=== PATIENT | male | born 1955 | race Caucasian/White ===

== ENCOUNTER → 2024-07-06 | Outpatient (CLI) | payer MEDICARE, BC, SELFPAY ==
--- NOTE | 2024-07-06 10:54 | XR_ITS ---
Examination: Ribs, bilateral, with PA chest, 7 views Technique: Chest PA, RIBS AP, RPO, LPO, right and left ribs, AP coned lower ribs 7 views Exam date and time: July 06, 2024 1153 hours INDICATIONS: Patient fell 3 months ago with injury to the right and left chest, bilateral rib pain Findings: Normal heart size No pneumothorax Prominent osteopenia No acute rib fractures IMPRESSION: No pneumothorax pulmonary contusion or hemothorax No acute rib fractures
== END | disposition home or self-care (01) ==
PROVIDERS: PCP Family Medicine; Referring Provider Family Medicine; Visit Provider Family Medicine
DX: R07.82 Intercostal pain (principal); S29.9XXS Unspecified injury of thorax, sequela; W19.XXXS Unspecified fall, sequela
CPT/HCPCS: 71111

== ENCOUNTER → 2024-09-02 | Outpatient (CLI) | payer MEDICARE, BC, SELFPAY ==
--- NOTE | 2024-09-02 12:39 | XR_ITS ---
Examination: Lumbar spine, 5 views Technique: Lumbar spine AP, lateral, coned lateral lower lumbar spine, bilateral obliques 5 views Exam date and time: September 02, 2024 1246 hours INDICATIONS: Lower back pain radiating to the right hip beginning 3 days ago. FINDINGS: Thoracolumbar levoscoliosis 20 degrees Moderate narrowing hip joints Prominent osteopenia Advanced diffuse facet arthropathy Moderate to advanced diffuse lumbar degenerative disc disease, most severe at the lower 3 lumbar levels No lumbar fracture Moderate lumbar spondylosis Calcified abdominal aorta with at least 3 cm AP dimension abdominal aorta IMPRESSION: Moderate to advanced diffuse lumbar degenerative disc disease with significant spinal stenosis
== END | disposition home or self-care (01) ==
PROVIDERS: PCP Nurse Practitioner Family; Referring Provider Nurse Practitioner Family; Visit Provider Nurse Practitioner Family
DX: M51.369 Other intervertebral disc degeneration, lumbar region without mention of lumbar back pain or lower extremity pain (principal); M48.061 Spinal stenosis, lumbar region without neurogenic claudication
CPT/HCPCS: 72110

== ENCOUNTER → 2024-10-06 | Outpatient (CLI) | payer MEDICARE, BC, SELFPAY ==
--- NOTE | 2024-10-06 16:53 | XR_ITS ---
Examination: Thoracic spine 3 views Technique: AP lateral coned lateral upper dorsal spine 3 views Exam date and time: October 06, 2024 1734 hrs. Indications: Upper back pain beginning 7 days ago. Findings: Significant osteopenia Thoracic dextroscoliosis 8 degrees No acute thoracic fracture Mild diffuse thoracic disc narrowing Incidental advanced disc narrowing C5-C6 Impression: Mild diffuse thoracic degenerative disc disease
--- NOTE | 2024-10-06 16:53 | XR_ITS ---
Examination: Lumbar spine, 5 views Technique: Lumbar spine AP, lateral, coned lateral lower lumbar spine, bilateral obliques 5 views Exam date and time: October 06, 2024 1734 hrs. Comparison September 02, 2024 Indications: Onset low back pain beginning 7 days ago Findings: Lumbar levoscoliosis 20 degrees Prominent osteopenia Diffuse advanced facet arthropathy Calcified abdominal aorta AP dimension at least 3 cm Moderate to advanced diffuse lumbar degenerative disc disease No lumbar fracture Impression: Moderate to advanced diffuse lumbar degenerative disc disease with significant spinal stenosis
== END | disposition home or self-care (01) ==
LOC: CDIM 16:49
PROVIDERS: Referring Provider Physician Assistant; Visit Provider Physician Assistant
DX: M51.34 Other intervertebral disc degeneration, thoracic region (principal); M51.369 Other intervertebral disc degeneration, lumbar region without mention of lumbar back pain or lower extremity pain; M48.061 Spinal stenosis, lumbar region without neurogenic claudication
CPT/HCPCS: 72072; 72110

== ENCOUNTER → 2024-12-21 | Outpatient (CLI) | payer MEDICARE, BC, SELFPAY ==
[2024-12-21 11:25] LABS: Basophils # (Auto) 0.1 Thou/mm3 (0.0-0.2); Basophils % (Auto) 1 % (0-2.5); Eosinophils # (Auto) 0.4 Thou/mm3 (0.0-0.5); Eosinophils % (Auto) 4 % (0-10); Hematocrit 51.9 % (41.0-53.0); Hemoglobin 18.4 g/dL (13.5-16.0); Immature Granulocytes % (Auto) 1 % (0-0); Immature Granulocytes Auto 0.08 Thou/mm3 (0.00-0.00); Lymphocytes # (Auto) 3.1 Thou/mm3 (1.0-4.8); Lymphocytes % (Auto) 29 % (10-50); Mean Corpuscular HGB Conc 35.5 g/dl (31.0-37.0); Mean Corpuscular Hemoglobin 29.8 pg (25.0-35.0); Mean Corpuscular Volume 84 fL (80-100); Monocytes # (Auto) 0.9 Thou/mm3 (0.0-0.8); Monocytes % (Auto) 8 % (0-12); Neutrophils % (Auto) 57 % (37-80); Nucleated Red Blood Cell % 0 /100 WBC (0); Platelet Count 334 Thou/mm3 (140-440); RDW Standard Deviation 41.2 fL (35.1-43.9); Red Blood Count 6.17 Miln/mm3 (4.50-5.90); White Blood Count 10.7 Thou/mm3 (3.8-10.6)
[2024-12-21 11:37] LABS: Glucose Estimated Average 100 mg/dL (80-131); Hemoglobin A1C 5.1 % Hgb (4.8-6.0)
[2024-12-21 11:53] LABS: Prostate Specific Antigen 1.96 ng/mL (0-4.00)
[2024-12-21 11:56] LABS: Alanine Aminotransferase 65 U/L (10-49); Albumin, Serum 4.7 gm/dL (3.4-4.8); Albumin/Globulin Ratio 1.5 (1.2-2.2); Alkaline Phosphatase 122 U/L (46-116); Anion Gap 8 (7-16); Aspartate Amino Transferase 43 U/L (0-34); BUN/Creatinine Ratio 13 Ratio (12-20); Bilirubin,Total 1.1 mg/dL (0.3-1.2); Blood Urea Nitrogen 18 mg/dL (9-23); Calcium 9.6 mg/dL (8.3-10.6); Calcium (Corrected) 9.6 mg/dL (8.5-10.1); Carbon Dioxide 27.3 mMol/L (20.0-31.0); Cardiac Risk Estimate 4.9 RATIO (4.0-6.7); Chloride 105 mMol/L (98-107); Cholesterol 170 mg/dL (132-200); Creatinine (Component) 1.4 mg/dL (0.6-1.3); Globulin 3.1 gm/dL (2.3-3.5); Glucose 125 mg/dL (74-106); HDL Cholesterol 35 mg/dL (40-60); LDL Cholesterol,Calculated 94 mg/dL (0-130); Osmolality,Calculated 282 (275-295); Potassium 4.6 mMol/L (3.4-5.1); Sodium 140 mMol/L (136-145); Thyroid Stimulating Hormone 1.29 uIU/mL (0.55-4.78); Total Protein 7.8 gm/dL (5.7-8.2); Triglycerides 203 mg/dL (30-150); eGFR 54 See Note
[2024-12-21 12:45] LABS: Collection Type, Urine Clean Catch; Squamous Epithelial Cell,Urine 0 /hpf (0-5)
[2024-12-21 13:00] LABS: Bilirubin,Urine Negative (Negative); Blood,Urine Negative (Negative); Clarity,Urine Clear (Clear/Hazy); Color,Urine Yellow (Lt Yel-Yel); Culture Indicated,Urine Not Indicated; Glucose, Urine Negative (Negative); Hyaline Casts,Urine < 1 /hpf (0-1); Ketones,Urine Negative (Negative); Leukocyte Esterase,Urine Negative (Negative); Nitrite,Urine Negative (Negative); Protein,Urine Negative (Neg - Trace); RBC,Urine 2 /hpf (0-3); Specific Gravity,Urine 1.016 (1.001-1.035); Urobilinogen,Urine Negative mg/dL (0.0-1.0); WBC,Urine 1 /hpf (0-5)
== END | disposition home or self-care (01) ==
LOC: COPL 10:12
PROVIDERS: PCP Family Medicine; Referring Provider Physician Assistant; Visit Provider Physician Assistant
DX: E78.2 Mixed hyperlipidemia (principal); I10 Essential (primary) hypertension
CPT/HCPCS: 36415; 80053; 80061; 81001; 83036; 84153; 84443; 85025

== ENCOUNTER → 2025-01-06 | Outpatient (BNVA) | payer MEDICARE, BC, SELFPAY | END | disposition home or self-care (01) | PROVIDERS: PCP Family Medicine; Referring Provider Family Medicine; Visit Provider Urology | DX: N40.0 Benign prostatic hyperplasia without lower urinary tract symptoms (principal); C67.9 Malignant neoplasm of bladder, unspecified; I12.9 Hypertensive chronic kidney disease with stage 1 through stage 4 chronic kidney disease, or unspecified chronic kidney disease; N18.2 Chronic kidney disease, stage 2 (mild); E66.9 Obesity, unspecified; Z68.34 Body mass index [BMI] 34.0-34.9, adult; Z87.891 Personal history of nicotine dependence; E78.00 Pure hypercholesterolemia, unspecified; J44.9 Chronic obstructive pulmonary disease, unspecified | CPT/HCPCS: 81003; 99212; G0463 ==

== ENCOUNTER → 2025-02-08 | Outpatient (CLI) | payer MEDICARE, BC, SELFPAY ==
--- NOTE | 2025-02-08 10:17 | XR_ITS ---
Examination: Sinus series 3 views TECHNIQUE: Tk Haas lateral sinus series 3 views Date and time: February 08, 2025 1037 hours INDICATIONS: Sinus pressure and pain beginning 5 weeks ago. FINDINGS: Mild opacity in the frontal ethmoid air cells Mucosal thickening up to 12 mm in the maxillary antra No fluid levels No retention cysts IMPRESSION: Chronic sinusitis
== END | disposition home or self-care (01) ==
PROVIDERS: PCP Family Medicine; Referring Provider Family Medicine; Visit Provider Family Medicine
DX: J32.9 Chronic sinusitis, unspecified (principal)
CPT/HCPCS: 70220

== ENCOUNTER 2025-05-07 01:00 | Emergency (ER) | payer MEDICARE, BC, SELFPAY ==
[2025-05-07 01:01] VITALS: BMI 33.5
[2025-05-07 01:24] VITALS: BP 123/80; PULSE 86; RESP 20; TEMP 37; O2SAT 93
--- NOTE | 2025-05-07 01:37 | PD.EDURI ---
Upper Respiratory Inf. RME/HPI General Chief Complaint: General Adult/Misc Complain Stated Complaint: COVID + TEST AT HOME Time Seen by Provider: 05/07/25 01:48 Arrival date/time: 05/07/25 01:00 RME / HPI RME / HPI Narrative: See [facility] for Dr. Collier's HPI Documentation. Related Data Home Medications ?Medication ?Instructions ?Recorded ?Confirmed latanoprost 0.005 % eye drops 1 drp Both eyes QDAY ##5 05/19/17 01/06/25 atorvastatin 20 mg tablet 20 mg PO QDAY 11/14/19 01/06/25 amlodipine 10 mg tablet 10 mg PO QDAY 12/22/22 01/06/25 brimonidine 0.2 % eye drops 1 drp ophthalmic (eye) TID 12/22/22 01/06/25 buspirone 15 mg tablet 15 mg PO QDAY 12/22/22 01/06/25 diclofenac sodium 75 mg 75 mg PO BID PRN Pain 12/22/22 01/06/25 tablet,delayed release mirtazapine 15 mg tablet 15 mg PO HS 12/22/22 01/06/25 omeprazole 40 mg capsule,delayed 40 mg PO QDAY 12/22/22 01/06/25 release spironolactone 25 0.5 tab PO MWF 12/22/22 01/06/25 mg-hydrochlorothiazide 25 mg tablet timolol maleate 0.5 % eye drops 1 drp ophthalmic (eye) BID 12/22/22 01/06/25 Previous Rx's ?Medication ?Instructions ?Recorded albuterol sulfate 90 mcg/actuation 2 puff inhalation Q6H PRN 05/07/25 aerosol inhaler shortness of breath or wheezing #8.5 grams azithromycin 500 mg tablet 500 mg PO QDAY 3 days #3 tabs 05/07/25 (Zithromax [place]) prednisone 50 mg tablet 50 mg PO BID 3 days #6 tabs 05/07/25 Allergies Allergy/AdvReac Type Severity Reaction Status Date / Time levofloxacin (From Levaquin) Allergy Severe Confusion Verified 05/07/25 01:03 Penicillins Allergy Severe RASH ITCHY Verified 05/07/25 01:03 Review of Systems Review of Systems Systems Reviewed: All systems reviewed, normal except as documented Past Medical History Past Medical History CARDIAC: Positive Cardiac Disorders, Hypercholesterolemia and Hypertension RESPIRATORY: Positive Chronic Obstructive Pulmonary Disease (COPD), Asthma and Pneumonia GASTROINTESTINAL: Positive Gastrointestinal Disorders (RECTAL BLEED), Gastroesophageal Reflux Disease and Obesity GENITOURINARY: Positive Benign Prostatic Hyperplasia MUSCULOSKELETAL: Positive Musculoskeletal Disorders, Arthritis and Degenerative Disk Disease ENT: Positive Glaucoma PSYCHO/SOCIAL: Positive Anxiety OTHER HISTORY: Positive Hospitalization, Shingles, Chicken Pox and Cancer (BLADDER) Family History FAMILY HISTORY: Positive Family Cardiac Disorders Social History SMOKING STATUS: Former smoker ED Exam Narrative Physical exam: See MDM for Dr. Collier's Physical Exam Documentation. Course Course Course Narrative: CXR was ordered for determining the etiology of shortness of breath. Quality Measures none Orders Category Date Time Status Bedside COVID-19 Antigen Test NOW Care 05/07/25 01:49 Completed Bedside Influenza A&B Antigen Test NOW Care 05/07/25 01:49 Completed XR chest 1V portable Stat Exams 05/07/25 01:50 Completed BMP [Basic Metabolic Panel] Stat Lab 05/07/25 02:16 Completed BNP [B-Type Natriuretic Peptide] Stat Lab 05/07/25 02:16 Completed CBC Stat Lab 05/07/25 02:16 Completed Magnesium Stat Lab 05/07/25 02:16 Completed Strep A Rapid Stat Lab 05/07/25 03:00 Completed Troponin I Stat Lab 05/07/25 02:16 Completed Albuterol/Ipratr Rt Ele [Duoneb Rt Ele] Med 05/07/25 01:49 Discontinued 3 ml INH X1 ONE predniSONE Med 05/07/25 01:49 Discontinued 60 mg PO X1 ONE Vital Signs Vital signs: Vital Signs Temperature 98.6 F 05/07/25 01:24 Pulse Rate 86 05/07/25 01:24 Respiratory Rate 20 05/07/25 01:24 Blood Pressure 123/80 05/07/25 01:24 Pulse Oximetry (%) 93 L 05/07/25 01:24 Oxygen Delivery Method Room Air 05/07/25 01:24 Upper Respiratory Infection MDM Narrative [facility] Narrative:: This section includes all my notes and documentations, including HPI, PE, and ED course. Messi Collier MD HPI: 69 y/o male with Hx of COPD and Asthma presents with cough, shortness of breath, and sore throat x 40 hours. Patient tested positive for COVID-19 at home yesterday. No other complaints. ROS: All negative except as documented in HPI. Physical Exam: General: Alert and oriented. No acute distress when remaining still. Eyes: Conjunctivae and lids clear. ENT: No nasal congestion. TM normal bilaterally. Pharynx normal. Neck: Supple. Heart: RRR. Lungs: No respiratory distress. Decreased air movement with rhonchi. Abdomen: Soft and nontender. Skin: Warm and dry. Neuro: Alert and oriented X 3. I reviewed all diagnostic test results: My interpretation of the chest x-ray is increased bronchial markings. Blood tests unremarkable. Covid: Positive. Influenza: Negative. Rapid Strep: Negative. At this point, diagnoses include: COVID Treatment here included: Duoneb Prednisone 60 mg Significant improvement noted. Recommended supportive care. Based on my best medical judgment, made decision no further evaluation or treatment indicated at this time. Patient understands and agrees to the discharge instructions customized and printed, see below. Discharge instructions from Dr. Collier: --After evaluation, your symptoms are due to COVID. Strep was negative. --No physical exertion for 3 days to help rest the lungs. ?No smoking or exposure to smoking or pets or dust or humidity. --Zithromax to kill the germs causing the bronchitis. --Prednisone to help decrease the swelling in the airways. --Albuterol 2 puffs every 4-6 hours for 3 days to help keep the airways open. Then as needed for cough or shortness of breath. --See a private doctor on 05/09/25 for recheck. Ask for help until you are completely better. --Seek immediate medical care with worsening or with any concerns. Messi Collier MD Patient data External records reviewed:: [facility] previous records (Reviewed prior ED records from 05/07/24. Patient was seen for Bright red blood per rectum.) Clinical information provided by:: patient Social determinants that could affect healthcare access:: none Patient has the following chronic illnesses:: Hypercholesterolemia, Hypertension, Chronic Obstructive Pulmonary Disease (COPD), Asthma, Gastroesophageal Reflux Disease, Obesity, Benign Prostatic Hyperplasia, Arthritis, Degenerative Disk Disease, Glaucoma, Anxiety How is presenting disease/condition affected by chronic disease/condition?: exacerbated by Evaluation data The following diagnostics were reviewed and interpreted by me:: lab results and radiology exam(s) Lab and/or radiology exams considered but not ordered:: None Interpretation Summary: I reviewed all diagnostic test results: My interpretation of the chest x-ray is increased increased bronchial markings. Blood tests and urine tests Covid: Positive. Influenza: Negative. Rapid Strep: Negative. Medications / Prescriptions Medications or Prescriptions considered but not ordered:: None Medication administrations:: Medication Administration History Discontinued Medications Albuterol/Ipratropium (Albuterol/Ipratropium (Duoneb) Rt Ele 3 Ml Nebu) 3 ml INH X1 ONE Stop: 05/07/25 01:50 Last Admin: 05/07/25 02:10 Dose: 3 ml Documented By: CAITLYN Prednisone (Prednisone 20 Mg Tablet) 60 mg PO X1 ONE Stop: 05/07/25 01:50 Last Admin: 05/07/25 02:00 Dose: 60 mg Documented By: VIJAYA Duemiliano Prednisone 60 mg Consultations Consultation(s) initiated? (list below): No Diagnosis Upper Respiratory Differential Diagnosis: upper respiratory infection, viral infection, bronchitis, influenza and other (COVID-19) Most likely diagnosis given after review of the tests above:: COVID Admission Indicated Admission indicated?: not indicated Explain why admission is indicated or not indicated:: With significant improvement and no condition needing emergent intervention, there was no indication for admission. Admission Request Was there a request for admission?: No Disposition Plan Disposition Plan: Discharge Discharge Attestation Discharge Attestation: The patient and all family members were given an opportunity to ask questions and understood the discharge instructions. Discharge instructions specifically effects, indications for sooner follow up or return to the emergency department, and the expected course of current diagnosis. Patient condition: Stable Discharge Plan Plan Patient Disposition: HOME (Self Care) Prescriptions/Referrals Prescriptions/Med Rec: New prednisone 50 mg tablet 50 mg PO BID 3 Days Qty: 6 0RF albuterol sulfate 90 mcg/actuation HFA aerosol inhaler 2 puff inhalation Q6H PRN (Reason: shortness of breath or wheezing) Qty: 8.5 0RF azithromycin [Zithromax [place]] 500 mg tablet 500 mg PO QDAY 3 Days Qty: 3 0RF No Action latanoprost 2.5 ML drops 1 drp Both eyes QDAY Qty: 5 atorvastatin 20 mg Tablet 20 mg PO QDAY spironolacton-hydrochlorothiaz 25-25 mg tablet 0.5 tab PO MWF Patient Comments: TAKE 1/2 (ONE-HALF) TABLET BY MOUTH ONCE DAILY ON THURSDAY, THURSDAY AND THURSDAY omeprazole 40 mg capsule,delayed release(DR/EC) 40 mg PO QDAY Patient Comments: TAKE 1 CAPSULE BY MOUTH 30 MINUTES BEFORE BREAKFAST ONCE DAILY FOR 90 DAYS amlodipine 10 mg tablet 10 mg PO QDAY Patient Comments: TAKE 1 TABLET BY MOUTH ONCE DAILY FOR 90 DAYS brimonidine 0.2 % drops 1 drp OPHTHALMIC (EYE) TID Patient Comments: INSTILL 1 DROP INTO EACH EYE THREE TIMES DAILY diclofenac sodium 75 mg tablet,delayed release (DR/EC) 75 mg PO BID PRN (Reason: Pain) Patient Comments: TAKE 1 TABLET BY MOUTH TWICE DAILY NEEDED mirtazapine 15 mg tablet 15 mg PO HS Patient Comments: TAKE 1 TABLET BY MOUTH AT BEDTIME FOR 90 DAYS timolol maleate 0.5 % drops 1 drp OPHTHALMIC (EYE) BID Patient Comments: INSTILL 1 DROP TWICE DAILY INTO EACH EYE buspirone 15 mg tablet 15 mg PO QDAY Patient Comments: TAKE 1 TABLET BY MOUTH ONCE DAILY FOR 90 DAYS Referrals: Tiffanie Jeffers MD [Primary Care Provider, Family Practice] - In 1 week Problem List Clinical Impression: COVID Patient/Caregiver Discharge Instructions Discharge Activity: activity as tolerated Education Materials: COVID-19 Home Care Additional Instructions: Discharge instructions from Dr. Collier: --After evaluation, your symptoms are due to COVID. Strep was negative. --No physical exertion for 3 days to help rest the lungs. ?No smoking or exposure to smoking or pets or dust or humidity. --Zithromax to kill the germs causing the bronchitis. --Prednisone to help decrease the swelling in the airways. --Albuterol 2 puffs every 4-6 hours for 3 days to help keep the airways open. Then as needed for cough or shortness of breath. --See a private doctor on 05/09/25 for recheck. Ask for help until you are completely better. --Seek immediate medical care with worsening or with any concerns. Print Language: Romanian Stand Alone Forms: [employer] Award Info., Patient Portal Info Letter
--- NOTE | 2025-05-07 01:50 | XR_ITS ---
Examination: AP chest single view Technique one AP upright portable chest single view Date and time: May 07, 2025, 1509 hrs. Indications: Shortness of breath today. Findings: COPD with moderate hyperexpansion Basilar bronchitis pattern. No lobar pneumonia Prominent osteopenia Impression: COPD Basilar bronchitis pattern
[2025-05-07] MEDS: ALBUTEROL/IPRATROPIUM (Duoneb) RT SOL 3 ML NEBU INH (02:10)
[2025-05-07 02:15] VITALS: PULSE 85; RESP 16; O2SAT 95
[2025-05-07 02:33] LABS: Basophils # (Auto) 0.0 Thou/mm3 (0.0-0.2); Basophils % (Auto) 0 % (0-2.5); Eosinophils # (Auto) 0.1 Thou/mm3 (0.0-0.5); Eosinophils % (Auto) 1 % (0-10); Hematocrit 51.8 % (41.0-53.0); Hemoglobin 18.3 g/dL (13.5-16.0); Immature Granulocytes Auto 0.04 Thou/mm3 (0.00-0.00); Lymphocytes # (Auto) 2.0 Thou/mm3 (1.0-4.8); Lymphocytes % (Auto) 18 % (10-50); Mean Corpuscular HGB Conc 35.3 g/dl (31.0-37.0); Mean Corpuscular Hemoglobin 30.1 pg (25.0-35.0); Mean Corpuscular Volume 85 fL (80-100); Monocytes # (Auto) 1.2 Thou/mm3 (0.0-0.8); Monocytes % (Auto) 10 % (0-12); Neutrophils # (Auto) 8.1 Thou/mm3 (1.8-7.7); Neutrophils % (Auto) 71 % (37-80); Nucleated Red Blood Cell # 0.00 Thou/mm3 (0.00-0.00); Nucleated Red Blood Cell % 0 /100 WBC (0); Platelet Count 190 Thou/mm3 (140-440); RDW Standard Deviation 43.3 fL (35.1-43.9); Red Blood Count 6.07 Miln/mm3 (4.50-5.90); White Blood Count 11.4 Thou/mm3 (3.8-10.6)
[2025-05-07 02:52] LABS: Anion Gap 10 (7-16); BUN/Creatinine Ratio 12 Ratio (12-20); Blood Urea Nitrogen 17 mg/dL (9-23); Calcium 9.7 mg/dL (8.3-10.6); Carbon Dioxide 23.3 mMol/L (20.0-31.0); Chloride 106 mMol/L (98-107); Creatinine (Component) 1.4 mg/dL (0.6-1.3); Glucose 110 mg/dL (74-106); Magnesium 1.8 mg/dL (1.6-2.6); Osmolality,Calculated 280 (275-295); Potassium 3.9 mMol/L (3.4-5.1); Sodium 139 mMol/L (136-145); Troponin I < 0.002 ng/mL (0.0-0.045); eGFR 54 See Note
[2025-05-07 02:53] LABS: B-Type Natriuretic Peptide < 20 pg/mL (0-100)
[2025-05-07 03:33] LABS: Strep A Rapid Negative (Negative)
[2025-05-07 03:58] VITALS: PULSE 92; RESP 16; O2SAT 94
== END 2025-05-07 03:58 | disposition home or self-care (01) ==
PROVIDERS: Emergency Provider Emergency Medicine; PCP Family Medicine
DX: U07.1 COVID-19 (principal); R06.02 Shortness of breath; J44.89 Other specified chronic obstructive pulmonary disease; Z87.891 Personal history of nicotine dependence
CPT/HCPCS: 36415; 71045; 80048; 83735; 83880; 84484; 85025; 87400; 87651; 87811; 94640; 99283; A9270; J7512

== ENCOUNTER → 2025-08-07 | Outpatient (BNVA) | payer MEDICARE, BC, SELFPAY | END | disposition home or self-care (01) | PROVIDERS: PCP Family Medicine; Referring Provider Family Medicine; Visit Provider Urology | DX: N40.1 Benign prostatic hyperplasia with lower urinary tract symptoms (principal); N13.8 Other obstructive and reflux uropathy; Z85.51 Personal history of malignant neoplasm of bladder; M79.2 Neuralgia and neuritis, unspecified | CPT/HCPCS: 81003; 99212; G0463 ==